=== PATIENT | female | born 1935 | race Caucasian/White ===

== ENCOUNTER 2016-12-30 08:55 | Observation (INO) | payer OTHER, MEDICARE ==
[2016-12-30 09:04] VITALS: BMI 28.3
--- NOTE | 2016-12-30 09:37 | PDOC ---
History of Present Illness - General Chief Complaint: Injury Stated Complaint: FALL Time Seen by Provider: 12/30/16 09:27 History Source: Patient Exam Limitations: Dementia (mild) - History of Present Illness Initial Comments: 12/30/16 09:33 Patient is an 81 year old female with PMH of HTN, dementia, HLN, DM and TIA presenting by ambulance from assisted living after fall from bed this morning. Patient states she fell from bed onto a hard surface this morning and was unable to get up. Denies hitting her head, denies dizziness, MONSIVAIS, or LOC. Denies recent illnesses, CP, SOB. Patient was unable to state why she fell and claims she couldn't get up because she felt weak. Endorses a previous fall a couple of days ago, from standing, during which she received an abrasion to her nose and upper lip. Patient was unclear about the cause of that fall. [id number] PCP: Cristal Past History - Past Medical History Allergies/Adverse Reactions: Allergies Allergy/AdvReac Type Severity Reaction Status Date / Time No Known Allergies Allergy Verified 12/30/16 08:59 Home Medications: Ambulatory Orders Amlodipine Besylate [Norvasc -] 10 mg PO DAILY 12/30/16 Docusate Sodium [Colace -] 100 mg PO DAILY 12/30/16 Insulin Lispro Protamin/Lispro [Humalog Mix 75-25 Kwikpen] 42 unit SQ BID Losartan/Hydrochlorothiazide [Hyzaar 100-12.5 Tablet] 1 each PO DAILY 12/30/16 Memantine HCl [Namenda Xr] 21 mg PO DAILY 12/30/16 Metformin HCl [Glucophage -] 850 mg PO TID 12/30/16 Methenamine Hippurate [Hiprex [Nf] -] 1 gm PO BID 12/30/16 Rivastigmine [Exelon] 1 each TD DAILY 12/30/16 Rosuvastatin Calcium [Crestor] 10 mg PO HS 12/30/16 Sertraline HCl [Zoloft -] 50 mg PO DAILY 12/30/16 Sitagliptin Phosphate [Januvia] 50 mg PO DAILY 12/30/16 Solifenacin Succinate [Vesicare -] 10 mg PO DAILY 12/30/16 Aspirin [ASA -] 81 mg PO DAILY tab.chew 12/31/16 CVA: Yes (TIA) Dementia: Yes Diabetes: Yes GI Disorders: Yes (ISLVER) HTN: Yes Hypercholesterolemia: Yes - Psycho/Social/Smoking Cessation Hx Anxiety: No Suicidal Ideation: No Smoking Status: No Smoking History: Never smoked Number of Cigarettes Smoked Daily: 0 Hx Alcohol Use: No Drug/Substance Use Hx: No Substance Use Type: None Review of Systems - Review of Systems Able to Perform ROS?: Yes Is the patient limited Nepalese proficient: No Constitutional: Yes: Fever HEENTM: No: Throat Pain Respiratory: No: Cough, Shortness of Breath Cardiac (ROS): No: Chest Pain, Syncope ABD/GI: No: Constipated, Diarrhea, Nausea, Vomiting : No: Dysuria Integumentary: No: Bruising, Rash Neurological: Yes: Weakness. No: Headache, Dizziness *Physical Exam - Vital Signs Last Vital Signs Temp Pulse Resp BP Pulse Ox 98.1 F 63 18 156/63 98 12/30/16 08:59 12/30/16 08:59 12/30/16 08:59 12/30/16 08:59 12/30/16 08:59 - Physical Exam General Appearance: Yes: Nourished HEENT: positive: EOMI, DAMEON, Pharynx Normal, Hearing Grossly Normal, Other (Dry oral mucosa, poor dentition). negative: Pharyngeal Erythema Respiratory/Chest: positive: Lungs Clear. negative: Chest Tender, Normal Breath Sounds (Deminished inspiratory effort), Respiratory Distress, Labored Respiration, Decreased Breath Sounds, Crackles, Rales, Rhonchi, Wheezing Cardiovascular: positive: Regular Rhythm, S1, S2, Bradycardia. negative: Murmur Gastrointestinal/Abdominal: positive: Normal Bowel Sounds, Soft. negative: Tender, Guarding Musculoskeletal: positive: Normal Inspection, Other (new [id number] abrasion to right knee, scabbed and healing mild abrasion to nose and upper lip) Extremity: positive: Normal Range of Motion, Pelvis Stable, Coldness. negative : Tender, Pedal Edema Integumentary: positive: Normal Color, Dry, Warm. 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 Comparison study June 16, 2012 Serial axial images of the brain were obtained from foramen magnum to the cranial vertex without intravenous contrast. The head was tilted during the acquisition of images Rapid Transit Operator image was reviewed. There is no evidence of acute subarachnoid hemorrhage, acute intra-axial or extra-axial fluid collection consistent with subdural or epidural hematoma. No mass effect, midline shift, acute territorial ischemic changes, herniation or edema is present. Normal fong matter white matter differentiation. Loss of volume of the brain, parenchyma with involutional changes. No evidence of hydrocephalus Examination of the bone windows show no fracture. The visualized paranasal sinuses and mastoid air cells are clear. Impression. No evidence of acute intracranial hemorrhage, edema, midline shift, mass effect , or skull fracture. No CT evidence of acute territorial ischemic changes. Medical Decision Making - Medical Decision Making 12/30/16 10:15 81 yo female with history of dementia, TIA, HTN and DM found down at her SNF with an unclear story. Clinically dehydrated, not complaining of any MS pain and moving all extremities. Patient afebrile. Mildly hypertensive. Pulse and O2 saturation wnl Bedside glucose 70 Ddx includes but not limited to cardiac events (MS, arrhythmia), neurological ( CVA, syncope), infection (PNA, UTI), dehydration, metabolic abnormalities, anemia, toxic, medication Plan EKG, CBC, CMP, UA, CXR, CT head Fluids Monitor and reevaluate EKG Changes: inferior and lateral flipped t-waves compared to previous studies Add on cardiac enzymes 12/30/16 10:33 Spoke with family who endorsed patient demented at baseline. Slightly more confused and trailing off when conversing today. Two days ago patient wondered away from a wedding and was found down at the bottom of an embankment. Suspected trip and fall. Patient examined at ED and diagnosed with UTI. Received one dose abx in ED but none from her prescription as it was lost. Patient has history of UTIs. Recent medication changes: Namenda dose reduced, started on sertraline 50 mg. 12/30/16 10:44 CBC WBC 9.1 K/mm3 (4.0-10.8) 12/30/16 09:40 RBC 4.67 M/mm3 (3.60-5.2) 12/30/16 09:40 Hgb 12.9 GM/dl (10.7-15.3) 12/30/16 09:40 Hct 38.8 % (32.4-45.2) 12/30/16 09:40 MCV 83.2 fl (80-96) 12/30/16 09:40 MCH 27.8 pg (25.7-33.7) 12/30/16 09:40 MCHC 33.4 g/dl (32.0-36.0) 12/30/16 09:40 RDW 13.4 % (11.6-15.6) 12/30/16 09:40 Plt Count 237 K/MM3 (134-434) D 12/30/16 09:40 MPV 8.5 fl (7.5-11.1) 12/30/16 09:40 Neutrophils % 77.1 % (42.8-82.8) 12/30/16 09:40 Lymphocytes % 16.0 % (8-40) D 12/30/16 09:40 Monocytes % 5.5 % (3.8-10.2) 12/30/16 09:40 Eosinophils % 1.1 % (0-4.5) D 12/30/16 09:40 Basophils % 0.3 % (0-2.0) 12/30/16 09:40 CMP Sodium 135 mmol/L (136-145) L 12/30/16 09:40 Potassium 3.4 mmol/L (3.5-5.1) L D 12/30/16 09:40 Chloride 101 mmol/L (98-107) D 12/30/16 09:40 Carbon Dioxide 26 mmol/L (22-28) 12/30/16 09:40 Anion Gap 8 (8-16) 12/30/16 09:40 BUN 28 mg/dl (7-18) H D 12/30/16 09:40 Creatinine 1.0 mg/dl (0.6-1.3) D 12/30/16 09:40 Creat Clearance w eGFR 52.95 (>60) 12/30/16 09:40 Random Glucose 99 mg/dl (74-106) D 12/30/16 09:40 Calcium 9.9 mg/dl (8.4-10.2) 12/30/16 09:40 Total Bilirubin 0.8 mg/dl (0.2-1.0) D 12/30/16 09:40 AST 36 U/L (10-42) 12/30/16 09:40 ALT 27 U/L (10-40) 12/30/16 09:40 Alkaline Phosphatase 56 U/L (32-92) D 12/30/16 09:40 Creatine Kinase 381 IU/L (26-140) H D 12/30/16 09:45 Troponin I 0.03 ng/ml (0.03-0.50) 12/30/16 09:45 Total Protein 6.8 g/dl (6.4-8.3) 12/30/16 09:40 Albumin 4.1 g/dl (3.5-5.0) 12/30/16 09:40 Urine Test Results Urine Color Yellow 12/30/16 09:55 Urine Appearance Clear 12/30/16 09:55 Urine pH 5.5 (4.5-8) 12/30/16 09:55 Ur Specific [place] <= 1.005 (1.005-1.025) 12/30/16 09:55 Urine Protein Negative (NEGATIVE) 12/30/16 09:55 Urine Glucose (UA) Negative (NEGATIVE) 12/30/16 09:55 Urine Ketones Negative (NEGATIVE) 12/30/16 09:55 Urine Blood Trace (NEGATIVE) H 12/30/16 09:55 Urine Nitrite Negative (NEGATIVE) 12/30/16 09:55 Urine Bilirubin Negative (NEGATIVE) 12/30/16 09:55 Ur Leukocyte Esterase Negative (NEGATIVE) 12/30/16 09:55 CBC: wnl, no leukocytosis or anemia CMP: Hyponatremic with prerenal elevation in BUN consistent with dehydration Hypokalcemia, Replete potassium, K-Chapo PO 40 Elevated CK with negative troponins consistent with fall UA negative for infection but trace blood/myoglobin consistent with fall 81 yo female with dementia and multiple falls over two days and under-treated UTI. Labs consistent with fall and dehydration and non concerning for acute MS but with new EKG findings. Plan to admit for syncope with cardiac monitoring with serial cardiac enzymes 12/30/16 10:54 CXR (Freddy Ahuja) poor inspiration, slightly increased opacity right base. Costophrenic angles visible b/l, no significant changes from . Official impression: no evidence of acute pulmonary disease CT: No evidence of acute intracranial hemorrhage, edema, midline shift, mass effect, or skull fracture 12/30/16 11:53 Spoke with Sarah Gibson NP who agreed to have patient admitted to tele/obs for cardiac monitoring and serial enzymes Admitting physician: Dr. Macias *DC/Admit/Observation/Transfer Diagnosis at time of Disposition: Abnormal finding on EKG Syncope Qualifiers: Syncope type: unspecified Qualified Code(s): R55 - Syncope and collapse - Discharge Dispostion Condition at time of disposition: Stable Admit: Yes - Referrals - Attestations Physician Attestion: 12/30/16 12:01 I, Dr. Freddy Ahuja, attest that this document has been prepared under my direction and personally reviewed by me in its entirety. I further attest, that it accurately reflects all work, treatment, procedures and medical decision -making performed by me.
[2016-12-30] MEDS ORDERED: SODIUM CHLORIDE 1,000 ML IV STA (10:00)
[2016-12-30 10:13] LABS: PH,URINE 5.5 (4.5-8); URINE APPEARANCE Clear; URINE BILIRUBIN Negative (NEGATIVE); URINE GLUCOSE (UA) Negative (NEGATIVE); URINE KETONE Negative (NEGATIVE); URINE LEUK ESTERASE Negative (NEGATIVE); URINE NITRITE Negative (NEGATIVE); URINE PROTEIN Negative (NEGATIVE); URINE UROBILINOGEN 0.2 (0.2-1.0)
[2016-12-30 10:18] LABS: URINE BLOOD TRACE (NEGATIVE); URINE COLOR YELLOW
[2016-12-30 10:20] LABS: BASOPHIL 0.3 % (0-2.0); EOSINOPHIL 1.1 % (0-4.5); MCH 27.8 pg (25.7-33.7); MCHC 33.4 g/dl (32.0-36.0); MEAN CELL VOLUME 83.2 fl (80-96); MEAN PLT VOLUME 8.5 fl (7.5-11.1); NEUTROPHILS 77.1 % (42.8-82.8); PLATELET COUNT 237 K/MM3 (134-434); RDW 13.4 % (11.6-15.6); WHITE BLOOD COUNT 9.1 K/mm3 (4.0-10.8)
--- NOTE | 2016-12-30 10:21 | PDOC ---
Attending Attestation - Resident Resident Name: Freddy Ahuja - ED Attending Attestation I have performed the following: I have examined & evaluated the patient, The case was reviewed & discussed with the resident, I agree w/resident's findings & plan, Exceptions are as noted - HPI HPI: 12/30/16 10:18 Agree with the resident's HPI as documented in the electronic medical record. - Physicial Exam PE: 12/30/16 10:18 Agree with the resident's physical examination as documented in the electronic medical record. - Medical Decision Making 12/30/16 10:18 81-year-old female with history of hypertension, diabetes, TIA and dementia senior living facility resident who presents to the emergency department after being found on the floor. Fingerstick is 70 and the patient has dry oral mucosa. Differential diagnosis includes but is not limited to: AMI, syncope, cardiac arrhythmia, infection (pneumonia versus UTI), neurologic event (CVA, TIA , traumatic brain injury), electrolyte abnormality, dehydration, toxic/ metabolic derangement, anemia. Plan: 1. EKG 2. Labs and urine analysis 3. Chest x-ray 4. Glycemic control 5. CT head 6. Observe and reevaluate Addendum: EKG shows sinus bradycardia at a rate of 53 bpm with normal axis and intervals. There are inverted T waves in V4 to V6 as well as 1 and aVL and leads 2 and aVF. These findings were not present on prior EKGs. 12/30/16 11:45 Addendum: Labs were reviewed and are noted in the EMR. The be on is elevated at 28. Collateral information has been obtained from the family and apparently she fell 2 days ago while at a wedding and was seen at a local emergency department and was diagnosed with UTI receiving only 1 dose of antibiotics. The urine analysis shows positive leukoesterase only but no nitrites. Chest x-ray is negative as is CT head. Given her new ECG findings, the plan is to admit the patient to observation telemetry for serial cardiac markers, IV fluids for hydration and reevaluation, possible stress test
[2016-12-30 10:31] LABS: ALBUMIN 4.1 g/dl (3.5-5.0); ALK PHOS 56 U/L (32-92); ANION GAP 8 (8-16); BILIRUBIN,TOTAL 0.8 mg/dl (0.2-1.0); CALCIUM 9.9 mg/dl (8.4-10.2); CO2 26 mmol/L (22-28); GLUCOSE,RANDOM 99 mg/dl (74-106); SGOT/AST 36 U/L (10-42); SGPT/ALT 27 U/L (10-40); TOT PROT 6.8 g/dl (6.4-8.3)
[2016-12-30 10:42] LABS: TROPONIN I (DFP) 0.03 ng/ml (0.03-0.50)
[2016-12-30 10:57] LABS: URINE RBC 0-3 /hpf (0-3)
[2016-12-30 11:12] LABS: CK INDEX FOR DOBBS 1.7 % (0.0-5.0)
[2016-12-30] MEDS ORDERED: POTASSIUM CHLORIDE TABS 20 MEQ TABLET.ER (FP) PO ONE ×2 (12:13→12:35)
--- NOTE | 2016-12-30 12:25 | HP ---
CHIEF COMPLAINT: syncope PCP: Dr Jacobo HISTORY OF PRESENT ILLNESS: patient is a 81 y/o female with a past medical history of HTN, hyperlipidemia, DM, and past TIAs. Patient resides at [facility]. Patient is a poor historian. As per daughter in laws, the patient attended a wedding in [place], on 12/27/16 and was found wandering the property with an abrasion to her nose and upper lip. She was brought to the local emergency department and was noted to have UTI, patient was given antibiotics and discharged home. Daughter in laws report patient has not started antibiotic because the prescription was misplaced. Early this AM, the patient was found on the floor of the assisted living facility by the medication nurse. Patient could not recall the incident. As a result, she was brought to the emergency department for further evaluation. Daughter in law report while in the emergency department the patient was speaking and eyes began to flicker with a brief period of loss of consciousness. Daughter in law , that patient awoke speaking Yoruba and was unable to determine if she had any slurred speech but notes patient has increased lethargy since incident. ER course was notable for: (1) ct of head: no acute pathology (2) chest xray no infilitrates no effusion noted (3) EKG sinus bradycardia, inverted T waves noted in V4, V6, I, II, AVL change from prior ekg 03/24 Recent Travel: none PAST MEDICAL HISTORY: see hpi PAST SURGICAL HISTORY: see hpi Social History: resides [facility] Smoking: none Alcohol:none Drugs: none Family History: non contributory to this admission Allergies No Known Allergies Allergy (Verified 12/30/16 08:59) HOME MEDICATIONS: Home Medications Medication Instructions Recorded Amlodipine Besylate [Norvasc -] 10 mg PO DAILY 12/30/16 Docusate Sodium [Colace -] 100 mg PO DAILY 12/30/16 Insulin Lispro Protamin/Lispro 42 unit SQ BID 12/30/16 [Humalog Mix 75-25 Kwikpen] Losartan/Hydrochlorothiazide 1 each PO DAILY 12/30/16 [Hyzaar 100-12.5 Tablet] Memantine HCl [Namenda Xr] 21 mg PO DAILY 12/30/16 Metformin HCl [Glucophage -] 850 mg PO TID 12/30/16 Methenamine Hippurate [Hiprex [Nf] 1 gm PO BID 12/30/16 -] Metoprolol Succinate [Toprol Xl] 50 mg PO DAILY 12/30/16 Rivastigmine [Exelon] 1 each TD DAILY 12/30/16 Rosuvastatin Calcium [Crestor] 10 mg PO HS 12/30/16 Sertraline HCl [Zoloft -] 50 mg PO DAILY 12/30/16 Sitagliptin Phosphate [Januvia] 50 mg PO DAILY 12/30/16 Solifenacin Succinate [Vesicare -] 10 mg PO DAILY 12/30/16 REVIEW OF SYSTEMS CONSTITUTIONAL: Absent: fever, chills, diaphoresis, generalized weakness, malaise, loss of appetite, weight change HEENT: Absent: rhinorrhea, nasal congestion, throat pain, throat swelling, difficulty swallowing, mouth swelling, ear pain, eye pain, visual changes CARDIOVASCULAR: present: syncope Absent: chest pain, palpitations, irregular heart rate, lightheadedness, peripheral edema RESPIRATORY: Absent: cough, shortness of breath, dyspnea with exertion, orthopnea, wheezing, stridor, hemoptysis GASTROINTESTINAL: Absent: abdominal pain, abdominal distension, nausea, vomiting, diarrhea, constipation, melena, hematochezia GENITOURINARY: Absent: dysuria, frequency, urgency, hesitancy, hematuria, flank pain, genital pain MUSCULOSKELETAL: Absent: myalgia, arthralgia, joint swelling, back pain, neck pain SKIN: Absent: rash, itching, pallor HEMATOLOGIC/IMMUNOLOGIC: Absent: easy bleeding, easy bruising, lymphadenopathy, frequent infections ENDOCRINE: Absent: unexplained weight gain, unexplained weight loss, heat intolerance, cold intolerance NEUROLOGIC: Present: mental status changes Absent: headache, focal weakness or paresthesias, dizziness, unsteady gait, seizure, , bladder or bowel incontinence PSYCHIATRIC: Absent: anxiety, depression, suicidal or homicidal ideation, hallucinations. PHYSICAL EXAMINATION Vital Signs - 24 hr 12/30/16 12/30/16 08:59 10:04 Temperature 98.1 F Pulse Rate 63 Respiratory 18 Rate Blood Pressure 156/63 156/63 O2 Sat by Pulse 98 Oximetry (%) GENERAL: Awake, alert, and oriented times person, lethargic open eyes to verbal stimuli. HEAD: abrasion noted to foreahead and bridge of nose. EYES: Pupils equal, round and reactive to light, extraocular movements intact, sclera anicteric, conjunctiva clear. No lid lag. EARS, NOSE, THROAT: Ears normal, nares patent, oropharynx clear without exudates. Moist mucous membranes. NECK: Normal range of motion, supple without lymphadenopathy, JVD, or masses. LUNGS: Breath sounds equal, clear to auscultation bilaterally. No wheezes, and no crackles. No accessory muscle use. HEART: Regular rate and rhythm, normal S1 and S2, 2/6 systolic murmur, rub or gallop. ABDOMEN: Soft, nontender, not distended, normoactive bowel sounds, no guarding, no rebound, no masses. No hepatomegaly or splenomegaly. MUSCULOSKELETAL: Normal range of motion at all joints. No bony deformities or tenderness. No CVA tenderness. UPPER EXTREMITIES: 4/4, 2+ pulses, warm, well-perfused. No cyanosis. No clubbing. No peripheral edema. LOWER EXTREMITIES: 4/4, 2+ pulses, warm, well-perfused. No calf tenderness. No peripheral edema. abrasion to right knee NEUROLOGICAL: Cranial nerves II-XII intact. Normal speech. Normal gait. PSYCHIATRIC: Cooperative. Good eye contact. Appropriate mood and affect. SKIN: Warm, dry, normal turgor, no rashes or lesions noted, normal capillary refill. Laboratory Results - last 24 hr 12/30/16 12/30/16 12/30/16 09:18 09:40 09:40 WBC 9.1 RBC 4.67 Hgb 12.9 Hct 38.8 MCV 83.2 MCH 27.8 MCHC 33.4 RDW 13.4 Plt Count 237 D MPV 8.5 Neutrophils % 77.1 Lymphocytes % 16.0 D Monocytes % 5.5 Eosinophils % 1.1 D Basophils % 0.3 Sodium 135 L Potassium 3.4 L D Chloride 101 D Carbon Dioxide 26 Anion Gap 8 BUN 28 H D Creatinine 1.0 D Creat Clearance w eGFR 52.95 POC Glucometer 71.22268 Random Glucose 99 D Calcium 9.9 Total Bilirubin 0.8 D AST 36 ALT 27 Alkaline Phosphatase 56 D Creatine Kinase Troponin I Total Protein 6.8 Albumin 4.1 Urine Color Urine Appearance Urine pH Ur Specific [place] Urine Protein Urine Glucose (UA) Urine Ketones Urine Blood Urine Nitrite Urine Bilirubin Urine Urobilinogen Ur Leukocyte Esterase Urine RBC Urine WBC Ur Epithelial Cells 12/30/16 12/30/16 09:45 09:55 WBC RBC Hgb Hct MCV MCH MCHC RDW Plt Count MPV Neutrophils % Lymphocytes % Monocytes % Eosinophils % Basophils % Sodium Potassium Chloride Carbon Dioxide Anion Gap BUN Creatinine Creat Clearance w eGFR POC Glucometer Random Glucose Calcium Total Bilirubin AST ALT Alkaline Phosphatase Creatine Kinase 381 H D Troponin I 0.03 Total Protein Albumin Urine Color Yellow Urine Appearance Clear Urine pH 5.5 Ur Specific [place] <= 1.005 Urine Protein Negative Urine Glucose (UA) Negative Urine Ketones Negative Urine Blood Trace H Urine Nitrite Negative Urine Bilirubin Negative Urine Urobilinogen 0.2 Ur Leukocyte Esterase Negative Urine RBC 0-3 Urine WBC 3-5 Ur Epithelial Cells 0-3 ASSESSMENT/PLAN: f/e/n - low sodium/diabetic diet - replete potassium ppx - heparin - oob - pt - pepcid dispo: require tele obsv Problem List - Problem (1) Abnormal finding on EKG Assessment/Plan: - troponin x 1, wnl, pending 2nd and 3rd - continuos cardiac monitoring - 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 as 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 daughter in law, appreciate cardiology input Code(s): R94.31 - ABNORMAL ELECTROCARDIOGRAM [ECG] [EKG] (2) Syncope Assessment/Plan: - secondary to dehydration vs arrhythmias - daughter in law reports brief period of seizure like activity (new finding) head ct negative-->pending MRI of brain - continuous cardiac monitoring - pending carotid doppler and echo - fall precautions Code(s): R55 - SYNCOPE AND COLLAPSE Qualifiers: Syncope type: unspecified Qualified Code(s): R55 - Syncope and collapse (3) Bradycardia Assessment/Plan: - hold toprol Code(s): R00.1 - BRADYCARDIA, UNSPECIFIED (4) Diabetes mellitus Assessment/Plan: - pending hgb a1c - continue fingersticks achs, insulin 70/30, januvia Code(s): E11.9 - TYPE 2 DIABETES MELLITUS WITHOUT COMPLICATIONS Qualifiers: Diabetes mellitus type: type 2 Diabetes mellitus complication detail: with chronic kidney disease Chronic kidney disease stage: stage 3 (moderate) (5) Hyperlipemia Assessment/Plan: - continue lipitor - pending lipid profile Code(s): E78.5 - HYPERLIPIDEMIA, UNSPECIFIED (6) Hypertension Assessment/Plan: - continue losartan and norvasc, hold hctz due to hyponatremia and dehydration - b/p near goal Code(s): I10 - ESSENTIAL (PRIMARY) HYPERTENSION Qualifiers: Hypertension type: essential hypertension Qualified Code(s): I10 - Essential (primary) hypertension (7) Hypokalemia Assessment/Plan: - k 3.4, potassium 40meq kci given in ED - repeat K at 1500 Code(s): E87.6 - HYPOKALEMIA (8) Chronic kidney disease (CKD) stage G3a/A1, moderately decreased glomerular filtration rate (GFR) between 45-59 mL/min/1.73 square meter and albuminuria creatinine ratio less than 30 mg/g Assessment/Plan: - creatine 1.0 baseline 1.3, close monitorning hold metformin Code(s): N18.3 - CHRONIC KIDNEY DISEASE, STAGE 3 (MODERATE) (9) Dehydration Assessment/Plan: - start gentle IVF-->1/2ns w/20meqkci at 42ml/hir Code(s): E86.0 - DEHYDRATION (10) Dementia Assessment/Plan: - continue namenda - fall precautions - serial neuro checks Code(s): F03.90 - UNSPECIFIED DEMENTIA WITHOUT BEHAVIORAL DISTURBANCE Qualifiers: Dementia type: unspecified type Dementia behavioral disturbance: without behavioral disturbance Qualified Code(s): F03.90 - Unspecified dementia without behavioral disturbance (11) Chronic UTI (urinary tract infection) Assessment/Plan: - continue hiprex - pending urine culture Code(s): N39.0 - URINARY TRACT INFECTION, SITE NOT SPECIFIED Visit type - Emergency Visit Emergency Visit: Yes ED Registration Date: 12/30/16 Care time: The patient presented to the Emergency Department on the above date and was hospitalized for further evaluation of their emergent condition. - New Patient This patient is new to me today: Yes Date on this admission: 12/30/16 - Critical Care Critical Care patient: Yes Total Critical Care Time (in minutes): 45 Critical Care Statement: The care of this patient involved high complexity decision making to prevent further life threatening deterioration of the patient 's condition and/or to evalute & treat vital organ system(s) failure or risk of failure.
[2016-12-30] MEDS ORDERED: SODIUM CHLORIDE 0.9%/KCL 1,000 ML IV SCH (14:15)
[2016-12-30] MEDS: ASPIRIN 81 MG CHEWABLE TABLETS PO SCH (14:50)
--- NOTE | 2016-12-30 14:56 | EKG ---
Test Reason : Blood Pressure : / mmHG Vent. Rate : 053 BPM Atrial Rate : 053 BPM P-R Int : 156 ms QRS Dur : 114 ms QT Int : 478 ms P-R-T Axes : 035 -10 192 degrees QTc Int : 448 ms SINUS BRADYCARDIA LEFT VENTRICULAR HYPERTROPHY WITH REPOLARIZATION ABNORMALITY ABNORMAL ECG WHEN COMPARED WITH ECG OF 09-FEB-2016 10:36, RIGHT BUNDLE BRANCH BLOCK IS NO LONGER PRESENT Confirmed by PRAVEENA BAGLEY, MOISÉS ([id number]) on 12/30/2016 2:55:45 PM Referred By: TWIN LISA Confirmed By:MOISÉS GRISSOM MD
--- NOTE | 2016-12-30 16:24 | CON.CARD ---
Cardiology Consult (text) - Consultation Consultation Note: cc: syncope hpi: 81 f hx tia, dm, htn, dementia, hld, sent from [place] after being found on floor. Pt poor historian, info from charts as well. Pt was at wedding this weekend and fell and was brought to ER and diagnosed with UTI and given abx. Rx was lost so did not take abx. Then today [place] she was found on floor. Pt has no recollection of event. Brought to er for further eval. Pt has no complaints and wants to go home. Denies cp, sob, palps, dizzy, loc, pnd, orthopnea, le edema. pmh: per hpi psh: nc social: no tob fam: unknown ros: per hpi; no nvd, fever, gib, hematuria, dysuria, mariee, vision changes, cough , nasal congestion, muscle pain meds: Ambulatory Orders Amlodipine Besylate [Norvasc -] 10 mg PO DAILY 12/30/16 Docusate Sodium [Colace -] 100 mg PO DAILY 12/30/16 Insulin Lispro Protamin/Lispro [Humalog Mix 75-25 Kwikpen] 42 unit SQ BID Losartan/Hydrochlorothiazide [Hyzaar 100-12.5 Tablet] 1 each PO DAILY 12/30/16 Memantine HCl [Namenda Xr] 21 mg PO DAILY 12/30/16 Metformin HCl [Glucophage -] 850 mg PO TID 12/30/16 Methenamine Hippurate [Hiprex [Nf] -] 1 gm PO BID 12/30/16 Metoprolol Succinate [Toprol Xl] 50 mg PO DAILY 12/30/16 Rivastigmine [Exelon] 1 each TD DAILY 12/30/16 Rosuvastatin Calcium [Crestor] 10 mg PO HS 12/30/16 Sertraline HCl [Zoloft -] 50 mg PO DAILY 12/30/16 Sitagliptin Phosphate [Januvia] 50 mg PO DAILY 12/30/16 Solifenacin Succinate [Vesicare -] 10 mg PO DAILY 12/30/16 pe: Vital Signs Period Temp Pulse Resp BP Sys/Avila Pulse Ox Last 24 Hr 98.1 F 54-63 16-18 142-156/63-78 97-98 nad no jvd rrr s1s2 no mrg cta bl nl eff awake, alert, mildly confused no jaundice, diaphoresis +dp pt no carotid bruits no le e/c/c abd nt nd pos bs Laboratory Last Values WBC 9.1 K/mm3 (4.0-10.8) 12/30/16 09:40 RBC 4.67 M/mm3 (3.60-5.2) 12/30/16 09:40 Hgb 12.9 GM/dl (10.7-15.3) 12/30/16 09:40 Hct 38.8 % (32.4-45.2) 12/30/16 09:40 MCV 83.2 fl (80-96) 12/30/16 09:40 MCH 27.8 pg (25.7-33.7) 12/30/16 09:40 MCHC 33.4 g/dl (32.0-36.0) 12/30/16 09:40 RDW 13.4 % (11.6-15.6) 12/30/16 09:40 Plt Count 237 K/MM3 (134-434) D 12/30/16 09:40 MPV 8.5 fl (7.5-11.1) 12/30/16 09:40 Neutrophils % 77.1 % (42.8-82.8) 12/30/16 09:40 Lymphocytes % 16.0 % (8-40) D 12/30/16 09:40 Monocytes % 5.5 % (3.8-10.2) 12/30/16 09:40 Eosinophils % 1.1 % (0-4.5) D 12/30/16 09:40 Basophils % 0.3 % (0-2.0) 12/30/16 09:40 Sodium 135 mmol/L (136-145) L 12/30/16 09:40 Potassium 3.4 mmol/L (3.5-5.1) L D 12/30/16 09:40 Chloride 101 mmol/L (98-107) D 12/30/16 09:40 Carbon Dioxide 26 mmol/L (22-28) 12/30/16 09:40 Anion Gap 8 (8-16) 12/30/16 09:40 BUN 28 mg/dl (7-18) H D 12/30/16 09:40 Creatinine 1.0 mg/dl (0.6-1.3) D 12/30/16 09:40 Creat Clearance w eGFR 52.95 (>60) 12/30/16 09:40 POC Glucometer 71.32984 UNITS (()) 12/30/16 09:18 Random Glucose 99 mg/dl (74-106) D 12/30/16 09:40 Calcium 9.9 mg/dl (8.4-10.2) 12/30/16 09:40 Total Bilirubin 0.8 mg/dl (0.2-1.0) D 12/30/16 09:40 AST 36 U/L (10-42) 12/30/16 09:40 ALT 27 U/L (10-40) 12/30/16 09:40 Alkaline Phosphatase 56 U/L (32-92) D 12/30/16 09:40 Creatine Kinase 381 IU/L (26-140) H D 12/30/16 09:45 Troponin I 0.03 ng/ml (0.03-0.50) 12/30/16 09:45 Total Protein 6.8 g/dl (6.4-8.3) 12/30/16 09:40 Albumin 4.1 g/dl (3.5-5.0) 12/30/16 09:40 Urine Color Yellow 12/30/16 09:55 Urine Appearance Clear 12/30/16 09:55 Urine pH 5.5 (4.5-8) 12/30/16 09:55 Ur Specific [place] <= 1.005 (1.005-1.025) 12/30/16 09:55 Urine Protein Negative (NEGATIVE) 12/30/16 09:55 Urine Glucose (UA) Negative (NEGATIVE) 12/30/16 09:55 Urine Ketones Negative (NEGATIVE) 12/30/16 09:55 Urine Blood Trace (NEGATIVE) H 12/30/16 09:55 Urine Nitrite Negative (NEGATIVE) 12/30/16 09:55 Urine Bilirubin Negative (NEGATIVE) 12/30/16 09:55 Urine Urobilinogen 0.2 (0.2-1.0) 12/30/16 09:55 Ur Leukocyte Esterase Negative (NEGATIVE) 12/30/16 09:55 Urine RBC 0-3 /hpf (0-3) 12/30/16 09:55 Urine WBC 3-5 (3-5) 12/30/16 09:55 Ur Epithelial Cells 0-3 /HPF 12/30/16 09:55 ecg 12/30/16: sr, nl intervals, lvh with repol changes, no sig change from ecg cxr: clear lungs head ct: no acute findings echo 12/2016: nl lv/rv, mild mr, mild pr, nl rvsp a/p: 81 f hx tia, dm, htn, dementia, hld, sent from [place] after being found on floor. possible syncope: -details of event unknown -echo unremarkable here -cont tele, check carotid US, check orthostatic VS, finish paul (trop negx1, no signs acs or chf presently)-->if benign then ok for dc after 24 hours tele from cardiac pov, could consider outpt event monitor if episode were to recur -?uti, ?dehydration (elevated bun on labs) htn: -stable, agree with holding BB as HR in 50s here at times-->if bp becomes elevated after holding can try hydralazine 10 bid in addition to her current ccb and arb abnl ecg: -ecg with lvh and repol changes with inf/lat twis. In reviewing prior ecgs, this current ecg is similar to ecg from 01/08/16, so there are no significant new changes. Plans as above. hld: -cont home statin
[2016-12-30] MEDS: INSULIN (NOVOLOG MIX 70/30) 100 UNITS/ML MDV SQ SCH (17:00)
[2016-12-30 18:31] LABS: ANION GAP 8 (8-16); CALCIUM 9.4 mg/dl (8.4-10.2); CO2 24 mmol/L (22-28); GLUCOSE,RANDOM 203 mg/dl (74-106)
[2016-12-30 18:52] LABS: TROPONIN I (DFP) 0.03 ng/ml (0.03-0.50)
[2016-12-30 19:59] LABS: CK INDEX FOR DOBBS 1.7 % (0.0-5.0)
[2016-12-30] MEDS ORDERED: PATIENT'S OWN MEDICATION (NON-FORMULARY) (Methenamine Hippurate 1 GM) PO SCH (22:00)
[2016-12-30] MEDS ORDERED: PATIENT'S OWN MEDICATION (NON-FORMULARY) (Insulin Lispro Protamin/Lispro [Humalog Mix 75-2 SQ SCH (22:00)
[2016-12-30 22:56] VITALS: BP 149/58; PULSE 56; TEMP 99
[2016-12-31] MEDS ORDERED: LORAZEPAM CARPU-JECT 2 MG/ML DISP.SYRIN IVPUSH ONE (03:46)
[2016-12-31] MEDS ORDERED: LORazepam 2 MG/ML SDV VIAL ONE (03:53)
[2016-12-31] MEDS ORDERED: sitaGLIPtin PHOSPHATE 50 MG TABLET PO SCH (07:00)
[2016-12-31] MEDS: INSULIN (NOVOLOG MIX 70/30) 100 UNITS/ML MDV SQ SCH (08:00)
[2016-12-31 08:13] LABS: BASOPHIL 1.7 % (0-2.0); EOSINOPHIL 0.8 % (0-4.5); MCHC 33.6 g/dl (32.0-36.0); MEAN CELL VOLUME 83.2 fl (80-96); MEAN PLT VOLUME 8.1 fl (7.5-11.1); PLATELET COUNT 223 K/MM3 (134-434); RDW 13.8 % (11.6-15.6); WHITE BLOOD COUNT 8.7 K/mm3 (4.0-10.8)
[2016-12-31 08:31] LABS: ANION GAP 9 (8-16); CALCIUM 9.3 mg/dl (8.4-10.2); CO2 23 mmol/L (22-28); CREATININE 0.9 mg/dl (0.6-1.3); GLUCOSE,RANDOM 120 mg/dl (74-106); MAGNESIUM 1.4 mg/dL (1.8-2.4); PHOSPHOROUS 2.3 mg/dl (2.5-4.6)
[2016-12-31] MEDS ORDERED: MAGNESIUM SULFATE 2 GM in SODIUM CHLORIDE 100 ML IVPB ONE (08:50)
--- NOTE | 2016-12-31 08:55 | DS ---
Physical Exam: SUBJECTIVE: Patient seen and examined OBJECTIVE: Vital Signs Period Temp Pulse Resp BP Sys/Avila Pulse Ox Last 24 Hr 98.4 F-99.0 F 54-83 17-19 118-149/58-76 94-100 PHYSICAL EXAM GENERAL: The patient is awake, alert, and fully oriented, in no acute distress. HEAD: Normal with no signs of trauma. EYES: PERRL, extraocular movements intact, sclera anicteric, conjunctiva clear. ENT: Ears normal, nares patent, oropharynx clear without exudates, moist mucous membranes. NECK: Trachea midline, full range of motion, supple. LUNGS: Breath sounds equal, clear to auscultation bilaterally, no wheezes, no crackles, no accessory muscle use. HEART: Regular rate and rhythm, S1, S2 without murmur, rub or gallop. ABDOMEN: Soft, nontender, nondistended, normoactive bowel sounds, no guarding, no rebound, no hepatosplenomegaly, no masses. EXTREMITIES: 2+ pulses, warm, well-perfused, no edema. NEUROLOGICAL: Cranial nerves II through XII grossly intact. Normal speech, gait not observed. PSYCH: Normal mood, normal affect. SKIN: Warm, dry, normal turgor, no rashes or lesions noted. LABS Laboratory Results - last 24 hr 12/30/16 12/30/16 12/30/16 17:08 18:00 18:00 WBC RBC Hgb Hct MCV MCH MCHC RDW Plt Count MPV Neutrophils % Lymphocytes % Monocytes % Eosinophils % Basophils % Sodium 133 L Potassium 3.8 Chloride 101 Carbon Dioxide 24 Anion Gap 8 BUN 23 H Creatinine 1.0 POC Glucometer 149 Random Glucose 203 H D Calcium 9.4 Phosphorus Magnesium Creatine Kinase 285 H D Troponin I 0.03 TSH 12/30/16 12/30/16 12/31/16 18:00 21:00 07:45 WBC 8.7 RBC 4.38 Hgb 12.3 Hct 36.5 MCV 83.2 MCH 28.0 MCHC 33.6 RDW 13.8 Plt Count 223 MPV 8.1 Neutrophils % 71.0 Lymphocytes % 19.8 D Monocytes % 6.7 Eosinophils % 0.8 Basophils % 1.7 D Sodium Potassium Chloride Carbon Dioxide Anion Gap BUN Creatinine POC Glucometer 144 Random Glucose Calcium Phosphorus Magnesium Creatine Kinase Troponin I TSH 1.54 12/31/16 07:45 WBC RBC Hgb Hct MCV MCH MCHC RDW Plt Count MPV Neutrophils % Lymphocytes % Monocytes % Eosinophils % Basophils % Sodium 137 Potassium 3.7 Chloride 105 Carbon Dioxide 23 Anion Gap 9 BUN 15 D Creatinine 0.9 POC Glucometer Random Glucose 120 H D Calcium 9.3 Phosphorus 2.3 L Magnesium 1.4 L D Creatine Kinase Troponin I TSH HOSPITAL COURSE: Date of Admission:12/30/16 Date of Discharge: 12/31/16 Discharge Summary Reason For Visit: SYNCOPE/ABNORMAL FINDING EKG Current Active Problems Abnormal finding on EKG (Acute) Chronic UTI (urinary tract infection) (Acute) Chronic kidney disease (CKD) stage G3a/A1, moderately decreased glomerular filtration rate (GFR) between 45-59 mL/min/1.73 square meter and albuminuria creatinine ratio less than 30 mg/g (Acute) Dehydration (Acute) Dementia (Acute) Syncope (Acute) Condition: Stable - Instructions Referrals: Rasheed Bee MD [Primary Care Provider] - - Home Medications Comprehensive Discharge Medication List: Ambulatory Orders Amlodipine Besylate [Norvasc -] 10 mg PO DAILY 12/30/16 Docusate Sodium [Colace -] 100 mg PO DAILY 12/30/16 Insulin Lispro Protamin/Lispro [Humalog Mix 75-25 Kwikpen] 42 unit SQ BID Losartan/Hydrochlorothiazide [Hyzaar 100-12.5 Tablet] 1 each PO DAILY 12/30/16 Memantine HCl [Namenda Xr] 21 mg PO DAILY 12/30/16 Metformin HCl [Glucophage -] 850 mg PO TID 12/30/16 Methenamine Hippurate [Hiprex [Nf] -] 1 gm PO BID 12/30/16 Metoprolol Succinate [Toprol Xl] 50 mg PO DAILY 12/30/16 Rivastigmine [Exelon] 1 each TD DAILY 12/30/16 Rosuvastatin Calcium [Crestor] 10 mg PO HS 12/30/16 Sertraline HCl [Zoloft -] 50 mg PO DAILY 12/30/16 Sitagliptin Phosphate [Januvia] 50 mg PO DAILY 12/30/16 Solifenacin Succinate [Vesicare -] 10 mg PO DAILY 12/30/16 Problem List - Problems (1) Abnormal finding on EKG Code(s): R94.31 - ABNORMAL ELECTROCARDIOGRAM [ECG] [EKG] (2) Syncope Code(s): R55 - SYNCOPE AND COLLAPSE Qualifiers: Syncope type: unspecified Qualified Code(s): R55 - Syncope and collapse (3) Bradycardia Code(s): R00.1 - BRADYCARDIA, UNSPECIFIED (4) Diabetes mellitus Code(s): E11.9 - TYPE 2 DIABETES MELLITUS WITHOUT COMPLICATIONS Qualifiers: Diabetes mellitus type: type 2 Diabetes mellitus complication detail: with chronic kidney disease Chronic kidney disease stage: stage 3 (moderate) (5) Hyperlipemia Code(s): E78.5 - HYPERLIPIDEMIA, UNSPECIFIED (6) Hypertension Code(s): I10 - ESSENTIAL (PRIMARY) HYPERTENSION Qualifiers: Hypertension type: essential hypertension Qualified Code(s): I10 - Essential (primary) hypertension (7) Hypokalemia Code(s): E87.6 - HYPOKALEMIA (8) Chronic kidney disease (CKD) stage G3a/A1, moderately decreased glomerular filtration rate (GFR) between 45-59 mL/min/1.73 square meter and albuminuria creatinine ratio less than 30 mg/g Code(s): N18.3 - CHRONIC KIDNEY DISEASE, STAGE 3 (MODERATE) (9) Dehydration Code(s): E86.0 - DEHYDRATION (10) Dementia Code(s): F03.90 - UNSPECIFIED DEMENTIA WITHOUT BEHAVIORAL DISTURBANCE Qualifiers: Dementia type: unspecified type Dementia behavioral disturbance: without behavioral disturbance Qualified Code(s): F03.90 - Unspecified dementia without behavioral disturbance (11) Chronic UTI (urinary tract infection) Code(s): N39.0 - URINARY TRACT INFECTION, SITE NOT SPECIFIED
[2016-12-31] MEDS ORDERED: POTASSIUM CHLORIDE TABS 20 MEQ TABLET.ER (FP) PO ONE (09:30)
[2016-12-31] MEDS ORDERED: MAGNESIUM SULF 50% (8.12 MEQ/2 ML-1 GM VIAL) IVPB ONE (09:30)
[2016-12-31] MEDS ORDERED: DOCUSATE SODIUM 100 MG CAPSULE (FP) PO SCH (10:00)
[2016-12-31] MEDS ORDERED: SERTRALINE HCL 50 MG TABLET (FP) PO SCH (10:00)
[2016-12-31] MEDS ORDERED: amLODIPine BESYLATE 10 MG TABLET (FP) PO SCH (10:00)
[2016-12-31] MEDS ORDERED: PATIENT'S OWN MEDICATION (NON-FORMULARY) (Memantine Hcl [Namenda Xr] 21 MG) PO SCH (10:00)
[2016-12-31] MEDS ORDERED: LOSARTAN POTASSIUM 50 MG TABLET (FP) PO SCH (10:00)
[2016-12-31] MEDS ORDERED: PATIENT'S OWN MEDICATION (NON-FORMULARY) (Solifenacin Succinate [Vesicare -] 10 MG) PO SCH (10:00)
[2016-12-31] MEDS ORDERED: PATIENT'S OWN MEDICATION (NON-FORMULARY) (Rivastigmine [Exelon] 1 EACH) TD SCH (10:00)
[2016-12-31] MEDS ORDERED: SOLIFENACIN SUCCINATE 5 MG TAB (FP) PO SCH (10:00)
[2016-12-31] MEDS ORDERED: METOPROLOL SUCCINATE 50 MG TAB.SR.24H (FP) PO SCH (10:00)
[2016-12-31] MEDS: ASPIRIN 81 MG CHEWABLE TABLETS PO SCH (10:04)
[2016-12-31 10:26] LABS: CPK(DFH) 285 IU/L (26-140)
[2016-12-31 12:22] LABS: CK MB 3.465 ng/ml (0.3-4.0); TROPONIN I (DFP) < 0.03 ng/ml (0.03-0.50)
== END 2016-12-31 12:56 ==
LOC: FER 08:55 → FM/S 12:47
PROVIDERS: ADMIT Internal Medicine; ATTEND Nurse Practitioner Family
PROC: 3E033GC Introduction of Other Therapeutic Substance into Peripheral Vein, Percutaneous Approach (ICD-10-PCS; principal; 2016-12-30)
PROC: 3E0337Z Introduction of Electrolytic and Water Balance Substance into Peripheral Vein, Percutaneous Approach (ICD-10-PCS; 2016-12-30)
DX: R94.31 Abnormal electrocardiogram [ECG] [EKG] (principal); R55 Syncope and collapse; R00.1 Bradycardia, unspecified; I12.9 Hypertensive chronic kidney disease with stage 1 through stage 4 chronic kidney disease, or unspecified chronic kidney disease; E11.22 Type 2 diabetes mellitus with diabetic chronic kidney disease; N18.3 Chronic kidney disease, stage 3 (moderate); E86.0 Dehydration; N39.0 Urinary tract infection, site not specified; F03.90 Unspecified dementia, unspecified severity, without behavioral disturbance, psychotic disturbance, mood disturbance, and anxiety; E78.5 Hyperlipidemia, unspecified; Z86.73 Personal history of transient ischemic attack (TIA), and cerebral infarction without residual deficits; Z79.4 Long term (current) use of insulin; Z79.84 Long term (current) use of oral hypoglycemic drugs; E78.6 Lipoprotein deficiency
CPT/HCPCS: 36415; 70450-TC; 70551-TC; 71010-TC; 80048; 80053; 81003; 81015; 82550; 82553; 83036; 83735; 84100; 84443; 84484; 85025; 87086; 93005; 93306-TC; 93880-TC; 97116-GP; 97162-GP; 99284-25; G0378